=== PATIENT | male | born 1960 | race Caucasian/White ===

== ENCOUNTER 2017-12-27 17:58 | Observation (INO) ==
[2017-12-27] MEDS: *HR* FentaNYL (PF) 100 MCG/2 ML VIAL IVP PRN (22:09)
--- NOTE | 2017-12-28 00:19 | Internal Med History&Physical ---
Date of Encounter: 12/28/17 Time of Encounter: 00:08 Internal Medicine - H&P: HPI Chief complaint: flank pain Admitted From: Home Plans for Post Hospital Care: Home History of present illness: Mr. Rivas is a 57 year old male with a past medical history of CAD with 2 stents, hypertension, and kidney stones who presented to the ED with left flank pain. Patient states that 12/27/17 at 2:30 AM he woke up from sleep due to the pain in his left flank that radiated down to his groin. He describes as being sharp and constant with associated nausea and vomiting. He went to [facility] at 4 AM where they did a CT abdomen and pelvis which showed a 6mm ureterolithiasis. Patient was sent home with pain and nausea medication but he stated that the medications did not work well and ended up back in the ED this afternoon. He denies dysuria, hematuria, fever, chest pain, shortness of breath. He has had previous kidney stones and needed stenting and lithotripsy. He was told to stop eating dairy after his last stone. He has not had a history of gout. He denies a history of stomach ulcers and has never been told he can take ibuprofen. Upon arrival to the ED, patient's vitals are within normal limits except blood pressure was 165/96 and HR 47. The labs showed WBC 16.4, neutrophils 86, creatinine 1.42, and a normal lactic acid. In the ED patient was given 6 mg of morphine, 1 L of normal saline, and Zofran. Due to [facility] not having urology patient was transferred to [facility] after Dr. Blair was called by [facility] and accepted patient. Patient was transferred to the floor for ureterolithiasis. Past Med Surg Social Fam HX - Past Medical History Medical history: arthritis, COPD, hyperlipidemia, hypertension, myocardial infarction Additional medical history: 2 heart stents Psychiatric history: no psych history - Past Surgical History Surgical History: hip replacement, knee replacement Additional surgical history: femur bone surgery rt leg, neck fusion - Social History Smoking Status: Current every day smoker Packs per day: 1/2 ppd Smokeless Tobacco Status: No Alcohol use: rarely Drug use: none Internal Medicine - H&P: Meds Aspirin [Adult Aspirin] 325 mg PO QDPC 12/27/17 [History] Losartan [Cozaar] 50 mg PO QDPC 12/27/17 [History] Montelukast [Singulair] 10 mg PO HS 12/27/17 [History] Nebivolol [Bystolic] 5 mg PO DAILY 12/27/17 [History] Oxycodone HCl/Acetaminophen [Percocet 10-325 mg Tablet] 1 each PO Q4-6H PRN [History] Pantoprazole Sodium [Protonix] 40 mg PO QDPC 12/27/17 [History] Pregabalin [Lyrica] 50 mg PO BID 12/27/17 [History] Tamsulosin HCl [Flomax] 0.4 mg PO QDPC 12/27/17 [History] 3 Allergy/AdvReac Type Severity Reaction Status Date / Time No Known Allergies Allergy Verified 12/27/17 20:29 All Systems PM: A 10-system review of systems was performed and is negative for pertinent findings except as documented above in the HPI. - Constitutional Vitals: Temp Pulse Resp BP Pulse Ox 98.3 F 67 17 157/88 95 12/27/17 23:29 12/27/17 23:29 12/27/17 23:29 12/27/17 23:29 12/27/17 23:29 Exam: Constitutional: Alert, in no acute distress Head: Normocephalic, atraumatic Heart: Normal, regular rate and rhythm, no murmurs Lungs: Clear to auscultation, no wheezes, rales, or rhonchi Abdomen: No CVA tenderness but tenderness along flank, Soft, nondistended, no guarding or rigidity. Extremities: No edema, No clubbing, radial pulse +2/4, capillary refill <2sec. Skin: Skin warm and dry, no lesions, no rashes, no jaundice Neurologic: CN grossly intact Psych: Cooperative with exam, good eye contact, cognitive function intact, speech clear, thought process logical, and goal directed Internal Med - H&P Results - Labs CBC & Chem 7: 12/28/17 03:14 - Assessment and plan (1) Ureterolithiasis Current Visit: Yes Status: Acute Assessment and plan: CT abd/pelvis at [facility] reportedly found a 6mm ureterolithiasis, official report not sent. Dr. Blair was consulted at [facility] ED. Plan: - IV fluids NS 100ml/hr - strain urine prn void - nausea: Zofran and Phenergan - nurse called [facility] to send imaging through [facility] - urology consult placed (2) HTN (hypertension) Current Visit: Yes Status: Acute Assessment and plan: Continue home beta emerita. Hydralazine for prn. Qualifiers: Hypertension type: essential hypertension Qualified Code(s): I10 - Essential (primary) hypertension (3) CAD (coronary artery disease) Current Visit: Yes Status: Acute Assessment and plan: CAD with 2 stents. 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 Continue home ASA, losartan , and bystolic. Qualifiers: Coronary Disease-Associated Artery/Lesion type: [place] artery [place] vs. transplanted heart: [place] heart Associated angina: without angina Qualified Code(s): I25.10 - Atherosclerotic heart disease of [place] coronary artery without angina pectoris (4) DVT prophylaxis Current Visit: Yes Status: Acute Assessment and plan: ICDs if he stays longer than 2 days will need to be switched to heparin. - Time Spent With Patient Total time spent is greater than 50% in coordination of care (as documented) at patient's floor/unit and/or counseling patient:
[2017-12-28] MEDS ORDERED: Naloxone 0.4 MG/ML INJ IVP PRN ×2 (02:20→14:00)
[2017-12-28] MEDS ORDERED: *HR* Promethazine 25 MG/ML VIAL IVP PRN ×2 (02:43→14:00)
[2017-12-28] MEDS ORDERED: Ondansetron 4 MG/2 ML VIAL IVP PRN ×2 (02:43→14:00)
[2017-12-28] MEDS ORDERED: 0.9 % Sodium Chloride 1,000 ML IVC SCH ×2 (02:45→14:00)
[2017-12-28 03:28] LABS: Hematocrit 47.6 % (37.5-50.1); Hemoglobin 16.4 g/dL (12.9-16.9); Mean Corpuscular HGB Conc 34.5 g/dL (31.6-35.5); Mean Corpuscular Hemoglobin 32.5 pg (28.0-33.3); Mean Corpuscular Volume 94.4 fL (83.0-100.0); Mean Platelet Volume 10.5 fL (9.4-12.4); Platelet Count 165 K/mcL (140-400); Red Blood Count 5.04 M/mcL (4.19-5.50); Red Cell Distribution Width 12.8 % (11.5-14.5)
[2017-12-28 03:45] LABS: Magnesium 1.9 mg/dL (1.6-2.6); Phosphorous 4.1 mg/dL (2.7-4.5)
[2017-12-28 03:46] LABS: BUN/Creatinine Ratio 14 (6-26); Blood Urea Nitrogen 20 mg/dL (6-20); Calcium 8.8 mg/dL (8.6-10.3); Carbon Dioxide 25 mEq/L (23-29); Chloride 109 mEq/L (98-107); Glucose 118 mg/dL (70-105); Osmolality,Calculated 296 (280-300); Potassium 4.2 mEq/L (3.5-5.1); Sodium 141 mEq/L (136-145); eGFR For African Americans > 60 (> 60); eGFR For Non-African Americans 51 (> 60)
[2017-12-28] MEDS: *HR* FentaNYL (PF) 100 MCG/2 ML VIAL IVP PRN (04:16)
[2017-12-28] MEDS ORDERED: *HR* OxyCODONE/APAP 5/325 TABLET PO PRN ×2 (08:14→14:00)
[2017-12-28] MEDS ORDERED: *HR* FentaNYL (PF) 100 MCG/2 ML VIAL IVP PRN ×2 (08:15→14:00)
--- NOTE | 2017-12-28 08:31 | Urology - Consult Note ---
Date of Encounter: 12/28/17 Time of Encounter: 08:29 - Assessment and Plan (1) Elevated serum creatinine Current Visit: Yes Status: Acute Assessment and plan: Likely secondary to dehydration as well as obstructing stone. Improvement expected after stone removal as well as IV fluids (2) Ureterolithiasis Current Visit: Yes Status: Acute Assessment and plan: We will plan on taking the patient for left ureteroscopic stone extraction today. Urology CN:HPI Consult date: 12/28/17 Reason for consult Urology: Other (left ureteral stone) Requesting physician: Gabby Alcala History of present illness: Angel is a 57-year-old male with a history of kidney stones. Patient was at an outside facility 3 days ago and was diagnosed with a left mid ureteral stone. Patient was discharged home returned back to the outside facility secondary to increasing pain. 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 Patient states his pain is okay controlled this time. No nausea or vomiting. No fevers. Patient was found to have a slightly elevated WBC count upon arrival to our facility. His serum creatinine was also solid above baseline. Past Med Surg Social Fam HX - Past Medical History Medical history: arthritis, COPD, hyperlipidemia, hypertension, myocardial infarction Additional medical history: 2 heart stents Psychiatric history: no psych history - Past Surgical History Surgical History: hip replacement, knee replacement Additional surgical history: femur bone surgery rt leg, neck fusion - Social History Smoking Status: Current every day smoker Packs per day: 1/2 ppd Smokeless Tobacco Status: No Alcohol use: rarely Drug use: none Medications and Allergies Aspirin [Adult Aspirin] 325 mg PO QDPC 12/27/17 [History] Losartan [Cozaar] 50 mg PO QDPC 12/27/17 [History] Montelukast [Singulair] 10 mg PO HS 12/27/17 [History] Nebivolol [Bystolic] 5 mg PO DAILY 12/27/17 [History] Oxycodone HCl/Acetaminophen [Percocet 10-325 mg Tablet] 1 each PO Q4-6H PRN [History] Pantoprazole Sodium [Protonix] 40 mg PO QDPC 12/27/17 [History] Pregabalin [Lyrica] 50 mg PO BID 12/27/17 [History] Tamsulosin HCl [Flomax] 0.4 mg PO QDPC 12/27/17 [History] 3 Allergy/AdvReac Type Severity Reaction Status Date / Time No Known Allergies Allergy Verified 12/27/17 20:29 Review of Systems - Constitutional no chills, no fever(s) - EENT Nose, mouth and throat: no dizziness - Cardiovascular no chest pain - Respiratory no cough, no dyspnea - Gastrointestinal abdominal pain, no nausea, no vomiting Exam Initial Vital Signs Temp Pulse Resp BP Pulse Ox 97.8 F 77 16 162/99 95 12/27/17 20:17 12/27/17 20:17 12/27/17 20:17 12/27/17 20:17 12/27/17 20:17 General/Neuological: alert and oriented x 3 Eyes: normal pupils, non-icteric Neck: no lymphadenopathy noted, supple to touch ABD: soft, nontender, no masses palpated, good bowel sounds Back: no pain on percussion bilaterally Skin: no rashes noted Musculoskeletal: normal gait, FROMx4 Urology Results - Labs 12/28/17 03:14 12/28/17 03:14 Abnormal lab results WBC 16.9 K/mcL (4.3-11.1) H 12/28/17 03:14 Chloride 109 mEq/L (98-107) H 12/28/17 03:14 Creatinine 1.42 mg/dL (0.70-1.30) H 12/28/17 03:14 Est GFR (Non-Af Amer) 51 (> 60) L 12/28/17 03:14 Glucose 118 mg/dL (70-105) H 12/28/17 03:14 Diabetes panel 12/28/17 Range/Units 03:14 Sodium 141 (136-145) mEq/L Potassium 4.2 (3.5-5.1) mEq/L Chloride 109 H (98-107) mEq/L Carbon Dioxide 25 (23-29) mEq/L BUN 20 (6-20) mg/dL Creatinine 1.42 H (0.70-1.30) mg/dL Glucose 118 H (70-105) mg/dL Calcium 8.8 (8.6-10.3) mg/dL Calcium panel 12/28/17 12/28/17 Range/Units 03:14 03:14 Calcium 8.8 (8.6-10.3) mg/dL Phosphorus 4.1 (2.7-4.5) mg/dL Pituitary panel 12/28/17 Range/Units 03:14 Sodium 141 (136-145) mEq/L Potassium 4.2 (3.5-5.1) mEq/L Chloride 109 H (98-107) mEq/L Carbon Dioxide 25 (23-29) mEq/L BUN 20 (6-20) mg/dL Creatinine 1.42 H (0.70-1.30) mg/dL Glucose 118 H (70-105) mg/dL Calcium 8.8 (8.6-10.3) mg/dL Adrenal panel 12/28/17 Range/Units 03:14 Sodium 141 (136-145) mEq/L Potassium 4.2 (3.5-5.1) mEq/L Chloride 109 H (98-107) mEq/L Carbon Dioxide 25 (23-29) mEq/L BUN 20 (6-20) mg/dL Creatinine 1.42 H (0.70-1.30) mg/dL Glucose 118 H (70-105) mg/dL Calcium 8.8 (8.6-10.3) mg/dL All other labs normal. Consult Discharge Plan - Plan Referrals: Sayda Davis, LUDWIN [Primary Care Provider] - NONE [Other]
[2017-12-28] MEDS ORDERED: Aspirin Enteric Coated 325 MG Tablet PO SCH (09:00)
--- NOTE | 2017-12-28 11:20 | Anesthesia Evaluation PreOp ---
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 Significant HX Other Medical History: GERD, Other (BPH) Anesthesia History: No Prior Anesthetic Complications Alcohol Use: rarely Drug use: none Medications and Allergies Aspirin [Adult Aspirin] 325 mg PO QDPC 12/27/17 [History] Losartan [Cozaar] 50 mg PO QDPC 12/27/17 [History] Montelukast [Singulair] 10 mg PO HS 12/27/17 [History] Nebivolol [Bystolic] 5 mg PO DAILY 12/27/17 [History] Oxycodone HCl/Acetaminophen [Percocet 10-325 mg Tablet] 1 each PO Q4-6H PRN [History] Pantoprazole Sodium [Protonix] 40 mg PO QDPC 12/27/17 [History] Pregabalin [Lyrica] 50 mg PO BID 12/27/17 [History] Tamsulosin HCl [Flomax] 0.4 mg PO QDPC 12/27/17 [History] 3 Allergy/AdvReac Type Severity Reaction Status Date / Time No Known Allergies Allergy Verified 12/27/17 20:29 - Meds/Allergy Pre-op Review Medications Reviewed: Yes Allergies Reviewed: Yes Beta Blockers on Current Med List: Yes (bystolic) If Beta Blockers taken, Date/Time (Last Dose taken): 12-28-17 bystolic 8:07 am Anesthesia Results - Labs 12/28/17 03:14 12/28/17 03:14 Anesthesia Exam Last Vital Signs Temp 98.9 F 12/28/17 06:45 Pulse 66 12/28/17 06:45 Resp 14 12/28/17 06:45 BP 137/76 12/28/17 06:45 Pulse Ox 92 12/28/17 06:45 Weight: 115 kg - HEENT Pupil (Motor): Pupils equal, EOMI Mallampati: I Teeth: Edentulous Denture Type: Upper: Complete, Lower: Complete Oral Opening: Greater than 3 - 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
[2017-12-28] MEDS ORDERED: Isovue-300 50 ML VIAL IVP ONE (12:05)
[2017-12-28] MEDS ORDERED: *HR* FentaNYL (PF) 100 MCG/2 ML VIAL ONE (12:16)
[2017-12-28] MEDS ORDERED: Ondansetron 4 MG/2 ML VIAL ONE (12:17)
[2017-12-28] MEDS ORDERED: Lidocaine -MPF 2% 2 ML VIAL ONE (12:17)
[2017-12-28] MEDS ORDERED: *HR* Midazolam HCl 2 MG/2 ML VIAL ONE (12:17)
[2017-12-28] MEDS ORDERED: *HR* Propofol 200 MG/20 ML VIAL IVP ONE (12:17)
[2017-12-28] MEDS ORDERED: Dexamethasone 4 MG/ML VIAL ONE (12:17)
[2017-12-28] MEDS ORDERED: *HR* Morphine 2 MG/ML SYRINGE IVP PRN (12:34)
[2017-12-28] MEDS ORDERED: *HR* Labetalol 20 MG/4 ML SYRINGE IVP PRN (12:34)
[2017-12-28] MEDS ORDERED: Ondansetron 4 MG/2 ML VIAL IVP ONE (12:34)
--- NOTE | 2017-12-28 13:05 | Operative Note ---
Date of procedure: 12/28/17 Pre-op diagnosis: left upj stone Post-op diagnosis: same Procedure: Left ureteroscopic stone extraction with holmium, left ureteroscopic basket retrieval stone fragment, left 4.8 x 26 cm ureteral stent placement Anesthesia: GETA Surgeon: Tyrone Blair Was there an assistant county attorney present: No Estimated blood loss (cc): 0 Specimen: left kidney stone Condition: stable Disposition: PACU Procedure in Detail: Patient was prepped and draped in normal sterile fashion. Timeout procedure performed. I then inserted the semirigid ureteroscope into the patient's bladder. I was able to cannulate the left ureteral orifice. I then placed the scope all the way up to the left UPJ where I encountered the Roxanol ureteral stone. The stone then popped back into the kidney. I then placed a Glidewire into the left kidney. A 11 x 13 x 46 cm access sheath was then placed into the left kidney. Flexible ureteroscope was then used to laser the stone using holmium laser. All stone fragments were then removed using a basket device. At this point I then placed a 4.8 x 26 cm stent with good curl seen in the left kidney and in the bladder. A string was left for easy removal in 2-3 days. Patient taken to PACU in stable condition Okay for patient to be discharged later today. Patient was scheduled for follow -up on January 16 at 1 PM in my [place] office. Okay for patient to remove stent in 2-3 days
--- NOTE | 2017-12-28 13:32 | Anesthesia Evaluation Post Op ---
Date of Encounter: 12/28/17 Time of Encounter: 13:30 - Vital Signs Vital Signs: Last Vital Signs Temp 97.5 F L 12/28/17 13:06 Pulse 66 12/28/17 13:26 Resp 16 12/28/17 13:26 BP 156/91 12/28/17 13:26 Pulse Ox 98 12/28/17 13:26 - Lungs Lungs: Clear Ascult./Percussion - Airway Airway: Non-obstructed - Cardiovascular Regular Rate - Mental Status Mental Status: Alert & Oriented, Answers Appropriately - Pain Pain Scale: 2 - Nausea Vomiting Nausea Vomiting: Not Present - Hydration Hydration: Ice chips - Discharge PostOp Status: Transfer Patient to floor
[2017-12-28 16:47] VITALS: BP 127/78
--- NOTE | 2017-12-28 17:08 | Event Note ---
Date of Encounter: 12/28/17 Time of Encounter: 10:20 57 year old male with COPD, CAD, HTN, admitted with left-sided loin to groin pain, noted to have 6mm left ureteral stone per outside ER imaging; Seen and examined at bedside; continues to have pain, awaiting OR; Chest- S1, S2 heard; lungs are clear to auscultation B/L Left ureterolithiasis- Urology on board, plan for operative stone extraction today; continue IV hydration, pain control with PO Percocet and IV Fentanyl; MIGUEL- serum creatinine noted to be 1.42, previous labs not available; may improve with ureteral stone extraction and IV hydration; continue to monitor closely;
--- NOTE | 2017-12-28 17:45 | Discharge Summary ---
- NOTES TO OUTPATIENT PROVIDER Notes to Outpatient Provider: Left ureteral stone s/p extraction and ureteral stent placement; to f/up with Urology in 3 weeks Orders not resulted at time of discharge: Pending orders 12/28/17 12:51 Surgical Pathology [PTH] Routine Date of Encounter: 12/28/17 Time of Encounter: 17:43 - Discharge Diagnosis (1) Ureterolithiasis Priority: Primary Status: Acute (2) HTN (hypertension) Priority: Secondary Status: Chronic Qualifiers: Hypertension type: essential hypertension Qualified Code(s): I10 - Essential (primary) hypertension (3) CAD (coronary artery disease) Priority: Secondary Status: Chronic Qualifiers: Coronary Disease-Associated Artery/Lesion type: [place] artery [place] vs. transplanted heart: [place] heart Associated angina: without angina Qualified Code(s): I25.10 - Atherosclerotic heart disease of [place] coronary artery without angina pectoris Hospital course: Mr. Rivas is a 57 year old male with the above medical problems, admitted with left-sided flank pain. [facility] abdomen showed 6 mm left ureterolithiasis. He was started on IV hydration and supportive care with pain control. Urology was consulted and patient underwent left ureteroscopic stone extraction with ureteral stent placement. He tolerated the procedure well, with improvement in left-sided flank pain. Patient is also noted to have possible acute kidney injury with elevated serum creatinine, which is expected to improve with IV hydration and stone extraction. He is advised to hold ARB for 3 days before resuming. He is asymptomatic and would like to be discharged home at this time. He is cleared by urology for discharge with outpatient follow-up. Discharge discussed with: patient, nurse - Time Spent with Patient Total time spent providing and/or coordinating discharge services: Greater than 30 minutes (40 min) - Discharge Medications Home Medications: Montelukast [Singulair] 10 mg PO HS 12/27/17 [History] Nebivolol [Bystolic] 5 mg PO DAILY 12/27/17 [History] Oxycodone HCl/Acetaminophen [Percocet 10-325 mg Tablet] 1 each PO Q4-6H PRN [History] Pantoprazole Sodium [Protonix] 40 mg PO BID 12/27/17 [History] Pregabalin [Lyrica] 50 mg PO QAM 12/27/17 [History] Tamsulosin HCl [Flomax] 0.4 mg PO DAILY 12/27/17 [History] Aspirin 325 mg PO DAILY 12/28/17 [History] Atorvastatin Calcium [Lipitor] 20 mg PO HS 12/28/17 [History] Losartan [Cozaar] 50 mg PO DAILY #0 12/31/17 [Rx] Allergies/Adverse Reactions: 3 Allergy/AdvReac Type Severity Reaction Status Date / Time No Known Allergies Allergy Verified 12/28/17 14:03 Date of admission: 12/27/17 20:02 Primary care physician: Sayda Davis Discharging clinician: Temi Goldsmith Anticipated date of discharge: 12/28/17 - Constitutional Vitals: Temp Pulse Resp BP Pulse Ox 98.5 F 72 16 127/78 95 12/28/17 14:45 12/28/17 14:45 12/28/17 14:45 12/28/17 14:45 12/28/17 14:45 General appearance: Present: A&O X 3, obese, answers questions appropriately - Cardiovascular Cardiovascular exam: Present: RRR, +S1, +S2. Absent: diastolic murmur, gallop, rubs, systolic murmur - Patient Status Disposition: Home, Self-Care Condition: Good Functional capacity at discharge: independent ambulation Overall status at discharge: patient is progressing back to baseline - Discharge Instructions Follow Up With: NONE [Other] Tyrone Blair MD [Partnered Physician] - 01/16/18 1:00 pm Sayda Davis CNP [Primary Care Provider] - (Patient will setup PCP appointment non [place]. Office closed at this time. ) Additional Instructions: F/up with PCP in 1-2 weeks F/up with Urology in 3 weeks, as scheduled Hold Losartan for 3 days and resume; - Diet and Activity Activity: resume usual activities as tolerated Diet: low fat, low cholesterol, low salt diet
[2017-12-29] MEDS ORDERED: Aspirin Enteric Coated 325 MG Tablet PO SCH (09:00)
== END 2017-12-28 18:23 | disposition home or self-care (01) ==
LOC: 3ANU → SUATTDRO 20:02
PROVIDERS: ADMIT Internal Medicine; ATTEND Internal Medicine